=== PATIENT | female | born 1980 | race African-American/Black ===

== ENCOUNTER 2018-07-11 05:50 | Inpatient (IN) | payer OTHER ==
[2018-07-11] MEDS ORDERED: PROMETHAZINE HCL 25 MG/1 ML VIAL IVPB ONE (06:00)
[2018-07-11] MEDS ORDERED: BUTORPHANOL TARTRATE 1 MG/ML VIAL IVPB ONE (06:00)
[2018-07-11] MEDS ORDERED: DEXTROSE 5%-LACTATED RINGERS 1,000 ML IV SCH (06:00)
[2018-07-11] MEDS ORDERED: PROMETHAZINE HCL 25 MG/1 ML VIAL ONE (06:29)
[2018-07-11] MEDS ORDERED: BUTORPHANOL TARTRATE 1 MG/ML VIAL ONE ×2 (06:29)
[2018-07-11 06:34] VITALS: BMI 29.2
[2018-07-11 07:13] LABS: BASO % 0.1 % (0-2.0); EOS % 0.3 % (0-4.5); HEMATOCRIT 35.4 % (32.4-45.2); HEMOGLOBIN 11.6 GM/dL (10.7-15.3); LYMPH % 12.5 % (8-40); MCH 32.5 pg (25.7-33.7); MCHC 32.9 g/dl (32.0-36.0); MEAN CELL VOLUME 98.6 fl (80-96); MEAN PLT VOLUME 8.7 fl (7.5-11.1); MONO % 4.4 % (3.8-10.2); NEUT % 82.7 % (42.8-82.8); PLATELET COUNT 203 K/MM3 (134-434); RBC 3.58 M/mm3 (3.60-5.2); RDW 13.8 % (11.6-15.6); WHITE BLOOD COUNT 10.4 K/mm3 (4.0-10.0)
[2018-07-11 07:29] LABS: ANION GAP 10 MMOL/L (8-16); BLOOD UREA NITROGEN 7 mg/dL (7-18); CALCIUM 8.4 mg/dL (8.5-10.1); CHLORIDE 107 mmol/L (98-107); CO2 22 mmol/L (21-32); CREATININE 0.5 mg/dL (0.55-1.3); GLUCOSE,RANDOM 129 mg/dL (74-106); POTASSIUM 3.7 mmol/L (3.5-5.1); SODIUM 138 mmol/L (136-145)
[2018-07-11 08:16] LABS: ACTIVATED PTT 26.5 SECONDS (25.2-36.5); INR 0.92 (0.83-1.09); PROTHROMBIN TIME (PATIENT) 10.9 SEC (9.7-13.0)
[2018-07-11] MEDS ORDERED: OXYTOCIN 30 UNITS in 0.9% NS 30 UNIT/500 ML INFUS.BAG IVPB SCH ×2 (08:45→10:15)
[2018-07-11] MEDS ORDERED: ELECTROLYTE-148 SOLN 1,000 ML IV SCH (08:45)
[2018-07-11] MEDS ORDERED: LIDOCAINE HCL 1% PRESERVATIVE FREE - 30ML VIAL ONE (08:52)
[2018-07-11] MEDS ORDERED: OXYTOCIN 20 UNITS in 0.9% NS 20 UNIT/1,000 ML INFUS.BAG IV ONE (08:52)
--- NOTE | 2018-07-11 08:53 | HP ---
Past Medical History - Primary Care Physician PCP:: Fanny Cobian - Admission Chief Complaint: Previous Section at 39 week. trial of labor after section History Source: Patient - Past Medical History ...: 2 ...Para: 1 ...Term: 1 ...: 0 ...Spon : 0 ...Induced : 0 ...Multiple Gestation: 0 ...EDC by Son[facility]: 07/15/18 - Past Surgical History Past Surgical History: Yes: None Hx Myomectomy: No Hx Transabdominal Cerclage: No - Smoking History Smoking history: Never smoked Have you smoked in the past 12 months: No - Alcohol/Substance Use Hx Alcohol Use: No History of Substance Use: reports: None - Social History Usual Living Arrangement: Yes: With Spouse History of Recent Travel: No Home Medications - Allergies Allergies/Adverse Reactions: Allergies Allergy/AdvReac Type Severity Reaction Status Date / Time egg Allergy Mild Itching Verified 06/04/14 07:00 - Home Medications Home Medications: Ambulatory Orders Tablet 1 tab PO DAILY 06/18/14 Review of Systems - Review of Systems Constitutional: reports: No Symptoms Eyes: reports: No Symptoms HENT: reports: No Symptoms Neck: reports: No Symptoms Cardiovascular: reports: No Symptoms Respiratory: reports: No Symptoms Gastrointestinal: reports: Abdominal Pain Genitourinary: reports: No Symptoms Breasts: reports: No Symptoms Reported Musculoskeletal: reports: No Symptoms Integumentary: reports: No Symptoms Neurological: reports: No Symptoms Endocrine: reports: No Symptoms Hematology/Lymphatic: reports: No Symptoms Psychiatric: reports: No Symptoms Physical Exam - Maternity Vital Signs: Vital Signs Temperature 97.7 F 07/11/18 08:00 Pulse Rate 64 07/11/18 08:00 Respiratory Rate 20 07/11/18 08:00 Blood Pressure 120/70 07/11/18 08:00 O2 Sat by Pulse Oximetry (%) Constitutional: Yes: Well Nourished, No Distress Neck: Yes: WNL Cardiovascular: Yes: WNL Lungs: Clear to auscultation Breast(s): Yes: WNL - Abdominal Exam/OB Fundal Height: 39 Number of Fetuses: Single Presentation: Vertex Contractions: Yes Regularity: Irregular Intensity: Mild/Mod Monitor Mode: External Heart Rate (range): 140 Heart Rate Location: [facility] Category: I Decelerations: None - Vaginal Exam/OB Dilatation (cm): 8-9 Effacement (%): 90 Amniotic Membrane Status: Ruptured Amniotic Fluid: Yes: Clear Presentation: Vertex/Position - Physical Exam Musculoskeletal: Yes: WNL Extremities: Yes: WNL Edema: No Integumentary: Yes: WNL Psychiatric: Yes: WNL, Alert, Oriented - Labs Lab Results: CBC, BMP 07/11/18 06:45 07/11/18 06:45 Hemorrhage Risk Assessment - Risk Factors Medium Risk Factors: Yes: Prior , uterine surgery,or multiple laparotomies High Risk Factors: Yes: None Risk Score: 1 Risk Level: Medium Risk Problem List - Problems (1) Previous delivery affecting , antepartum Code(s): O34.219 - MATERNAL CARE FOR UNSP TYPE SCAR FROM PREVIOUS DEL (2) Failed trial of labor following previous , antepartum Code(s): O66.41 - FAILED ATTEMPT VAGINAL AFTER PREVIOUS DEL (3) 39 weeks gestation of Code(s): Z3A.39 - 39 WEEKS GESTATION OF Assessment/Plan IUP at 39 week Previous section trial of labor after section- risks of rupture of uterus, morbidity/mortality discussed AROM Cat1 irregular contractions Plan sp stadol pitocin augmentation
[2018-07-11] MEDS ORDERED: TUBERCULIN PPD 5 TU/0.1ML SYRINGE (IN PATIENT USE ONLY) ID ONE (09:00)
[2018-07-11] MEDS: OXYTOCIN 20 UNITS in 0.9% NS 20 UNIT/1,000 ML INFUS.BAG IV SCH ×2 (09:50→18:00)
--- NOTE | 2018-07-11 10:04 | PN ---
Delivery - Delivery Vaginal Delivery: No Problems, Spontaneous, V-Alexys Type of Anesthesia: Local Episiotomy/Laceration: None, Right Mediolateral (repaired with 2 0 chromic suture) EBL (cc): 300 (Pt tolerated TOLAdelivery) Delivery, Single - Stages of Labor Placenta: Yes: Spontaneous - Condition of Infant Supervisor Joiners/Front Desk Attendant Present: No Gender: Female Position: OA - 1 Minute Total Score: 9 5 Minutes Total Score: 9 - [place] Feeding Plan Initial Plan: Elected not to breastfeed exclusively throughout hospitalization
[2018-07-11] MEDS ORDERED: BENZOCAINE 28 GM HEMORRHOIDAL OINTMENT PR PRN (10:05)
[2018-07-11] MEDS ORDERED: BISACODYL 10 MG SUPP.RECT RC PRN (10:05)
[2018-07-11] MEDS ORDERED: BENZOCAINE 20% 57 GM BOTTLE TP PRN (10:05)
[2018-07-11] MEDS ORDERED: ACETAMINOPHEN 325 MG TABLET (FP) PO PRN (10:05)
[2018-07-11] MEDS ORDERED: METHYLERGONOVINE MALEATE 0.2 MG/1 ML AMP IM PRN (10:05)
[2018-07-11] MEDS ORDERED: WITCH HAZEL 50% (TUCKS) 40 PAD/JAR PAD TP PRN (10:05)
[2018-07-11] MEDS ORDERED: oxyCODONE HCL 5 MG TABLET PO PRN (10:12)
[2018-07-11 10:23] LABS: ARTERIAL BLD GAS O2 SATURATION 66.3 % (90-98.9); ARTERIAL BLOOD GAS BASE EXCESS -1.7 meq/l (-2-2); ARTERIAL BLOOD GAS PCO2 41.9 mmHg (35-45); ARTERIAL BLOOD GAS PO2 28.2 mmHg (80-100); ARTERIAL BLOOD GAS pH 7.36 (7.35-7.45)
[2018-07-11 10:24] LABS: VENOUS PH 7.35 (7.32-7.42)
[2018-07-11 10:25] LABS: VENOUS PC02 44.5 mmHg (38-52); VENOUS PO2 39.4 mmHg (28-48)
[2018-07-11] MEDS: IBUPROFEN 600 MG TABLET (FP) PO PRN (21:15)
[2018-07-12 07:50] LABS: BASO % 0.3 % (0-2.0); HEMATOCRIT 25.8 % (32.4-45.2); HEMOGLOBIN 8.4 GM/dL (10.7-15.3); LYMPH % 16.2 % (8-40); MCH 32.3 pg (25.7-33.7); MCHC 32.5 g/dl (32.0-36.0); MEAN CELL VOLUME 99.6 fl (80-96); MEAN PLT VOLUME 8.1 fl (7.5-11.1); MONO % 5.4 % (3.8-10.2); NEUT % 77.1 % (42.8-82.8); PLATELET COUNT 173 K/MM3 (134-434); RBC 2.59 M/mm3 (3.60-5.2); RDW 14.2 % (11.6-15.6); WHITE BLOOD COUNT 11.2 K/mm3 (4.0-10.0)
[2018-07-12] MEDS ORDERED: DIPHTH,PERTUSS(ACELL),TET 0.5 ML DISP.SYRIN IM ONE (10:00)
--- NOTE | 2018-07-12 10:11 | PN ---
Post Progress Note - Subjective Subjective: Pt doing well. No acute events overnight. Pain controlled, tolerating regular diet. Voiding, ambulating. Type of Delivery: Vital Signs: Vital Signs Temperature 97.9 F 07/12/18 08:35 Pulse Rate 89 07/12/18 08:35 Respiratory Rate 18 07/12/18 08:35 Blood Pressure 99/62 07/12/18 08:35 O2 Sat by Pulse Oximetry (%) Breast Exam: Yes: Soft Uterus: Yes: Fundus Firm Abdomen/GI: Yes: Abdomen soft, Passing flatus. No: Tender Lochia, amount: Small Extremities: Yes: Calves non-tender Perineum: Yes: Episiotomy Activity: Ambulating - Labs Labs: CBC WBC 11.2 K/mm3 (4.0-10.0) H 07/12/18 07:10 RBC 2.59 M/mm3 (3.60-5.2) L 07/12/18 07:10 Hgb 8.4 GM/dL (10.7-15.3) L 07/12/18 07:10 Hct 25.8 % (32.4-45.2) L D 07/12/18 07:10 MCV 99.6 fl (80-96) H 07/12/18 07:10 MCH 32.3 pg (25.7-33.7) 07/12/18 07:10 MCHC 32.5 g/dl (32.0-36.0) 07/12/18 07:10 RDW 14.2 % (11.6-15.6) 07/12/18 07:10 Plt Count 173 K/MM3 (134-434) 07/12/18 07:10 MPV 8.1 fl (7.5-11.1) 07/12/18 07:10 Absolute Neuts (auto) 8.6 K/mm3 (1.5-8.0) H 07/12/18 07:10 Neutrophils % 77.1 % (42.8-82.8) 07/12/18 07:10 Lymphocytes % 16.2 % (8-40) D 07/12/18 07:10 Monocytes % 5.4 % (3.8-10.2) 07/12/18 07:10 Eosinophils % 1.0 % (0-4.5) D 07/12/18 07:10 Basophils % 0.3 % (0-2.0) 07/12/18 07:10 Nucleated RBC % 0 % (0-0) 07/12/18 07:10 Problem List - Problems (1) Vaginal delivery Code(s): O80 - ENCOUNTER FOR FULL-TERM UNCOMPLICATED DELIVERY (2) Vaginal delivery following previous section, delivered Code(s): O34.219 - MATERNAL CARE FOR UNSP TYPE SCAR FROM PREVIOUS DEL Assessment/Plan 37 y/o PPD#1 sp normal AFVSS Hgb 8.4, will start PNV and oral Iron, asymptomatic regular diet PO pain meds routine care
[2018-07-12] MEDS: IBUPROFEN 600 MG TABLET (FP) PO PRN (13:20)
[2018-07-13] MEDS: IBUPROFEN 600 MG TABLET (FP) PO PRN ×2 (01:22→12:33)
[2018-07-13 13:16] VITALS: BP 117/73; PULSE 91; TEMP 98.4
== END 2018-07-13 13:00 | disposition home or self-care (01) | DRG 807 ==
LOC: JLDR 05:50 → J3W 11:40
PROVIDERS: ADMIT Obstetrics & Gynecology; ATTEND Obstetrics & Gynecology
PROC: 10E0XZZ Delivery of Products of Conception, External Approach (ICD-10-PCS; principal; 2018-07-11)
PROC: 0W8NXZZ Division of Female Perineum, External Approach (ICD-10-PCS; 2018-07-11)
DX: O34.211 Maternal care for low transverse scar from previous cesarean delivery (principal); Z37.0 Single live birth; N85.8 Other specified noninflammatory disorders of uterus; Z3A.39 39 weeks gestation of pregnancy
CPT/HCPCS: 36415; 36600; 59409; 71046-TC-FY; 80048; 82803; 85025; 85610; 85730; 86593; 86850; 86900; 86901; 90715